=== PATIENT | female | born 1990 | race American Indian/Alaskan Native ===

== ENCOUNTER 2024-03-14 02:25 | Inpatient (IN) ==
[2024-03-14] MEDS ORDERED: OXYTOCIN 30 UNITS/NSS 30 UNITS/500 ML BAG IV PRN ×2 (02:51→12:51)
[2024-03-14] MEDS ORDERED: LIDOCAINE 1% LOCAL 20 ML VIAL INFIL PRN (02:51)
[2024-03-14] MEDS: LACTATED RINGER'S 1,000 ML IV PRN (02:57)
[2024-03-14] MEDS: PENICILLIN GK 6 MU in DEXTROSE 5% 250 ML IV STA (03:21)
[2024-03-14] MEDS ORDERED: ROPIVACAINE 0.5% PF 5 MG/ML 20 ML VIAL EPI PRN (03:43)
[2024-03-14] MEDS ORDERED: ePHEDrine sulfate 50 MG/ML AMP IV PRN (03:43)
[2024-03-14] MEDS ORDERED: NALOXONE HCL 1 MG in SODIUM CHLORIDE 0.9% 1,000 ML IV PRN (03:43)
[2024-03-14] MEDS ORDERED: NALBUPHINE HCL 5 MG in SYRINGE 0 ML IV PRN (03:43)
[2024-03-14] MEDS ORDERED: fentaNYL citrate PF 100 MCG/2 ML VIAL EPI PRN (03:43)
[2024-03-14] MEDS ORDERED: NALOXONE HCL 0.4 MG/1 ML VIAL/CARP IV PRN (03:43)
[2024-03-14] MEDS ORDERED: BUPIVACAINE 0.25% PF 30 ML VIAL EPI PRN (03:43)
[2024-03-14] MEDS ORDERED: SODIUM CHLORIDE 0.9% PF INJ 10 ML VIAL EPI PRN (03:43)
[2024-03-14] MEDS ORDERED: LIDOCAINE 2% MPF LOCAL 5 ML VIAL EPI PRN (03:43)
[2024-03-14] MEDS ORDERED: diphenhydrAMINE 50 MG/ML VIAL IV PRN (03:43)
--- NOTE | 2024-03-14 03:47 | Anesthesiology Consultation ---
Date of Service March 14, 2024 Assessment & Plan Chart Review Chart Review: Patient NOT seen in Pre Admission Testing and Acceptable Risk for Labor Epidural Consults Requested none ASA ASA2 Proposed Anesthesia Anesthesia Type: Labor Epidural Risk / Benefits Reviewed With: PT / POA / Parent / Guardian, Accepts Plan and Informed Consent Obtained History Height/Weight Height: 5 ft 6 in Weight: 95.254 kg Allergies Allergy/AdvReac Type Severity Reaction Status Date / Time No Known Allergies Allergy Unverified 03/14/24 02:47 Medications Home Medications Medication Instructions Recorded Confirmed Last Taken vits no.124-ferrous fum 1 tab PO DAILY 03/14/24 03/14/24 03/13/24 27 mg iron-folic acid 800 mcg tablet ( Vitamin) Active Medications Generic Name Dose Route Start Last Admin Trade Name Freq PRN Reason Stop Dose Admin Lactated Ringer's 1,000 mls @ 125 mls/hr 03/14/24 02:51 03/14/24 02:57 Lr IV 03/16/24 02:50 999 mls/hr .Q8H PRN Administration L&D Protocol Protocol NPO Date Last Intake of Fluids: 03/14/24 Time Last Intake of Fluids: 03:00 Date Last Intake of Solids: 03/13/24 Time Last Intake of Solids: 19:30 Past Medical History Medical History Rubella non-immune status, antepartum GBS (group B streptococcus) infection Rh negative status during Exercise / Class Metabolic Activity 1 > 8 Run/Swim/Ski/Tennis Past Family History Family History Grandmother (Maternal) Lymphoma Diabetes Hypertension Mother Hyperlipemia Past Surgical History Surgical History H/O wisdom tooth extraction S/P ACL repair Past Anesthesia History No Hx of Anesthesia Complications and No Family Hx of Anesthesia Complications History of PONV No Hx of PONV and No Hx of Motion Sickness Social History Smoking Status: Never smoker Hx Alcohol Use: No Hx Substance Use: No substance use type: does not use Review of Systems ROS Unobtainable: All systems reviewed & are unremarkable except as noted in HPI & below Physical Exam Vital Signs Last Vital Signs Temp 37.0 C 03/14/24 03:05 Pulse 82 03/14/24 03:38 Resp 18 03/14/24 03:05 BP 138/87 03/14/24 02:45 Pulse Ox 100 03/14/24 03:38 ENMT Mouth: no TMJ abnormality Thyromental Distance: > or= 3.5 Finger Breadths Mallampati Class: II Neck normal visual inspection and trachea midline; neck extension not limited Respiratory normal respiratory effort Auscultation: lungs clear to auscultation bilaterally Cardiovascular Rate/Rhythm: regular rate and regular rhythm Heart Sounds: no murmur Musculoskeletal Spine: normal cervical ROM Extremities: full ROM of extremities Neurologic moves all extremities Psychiatric Orientation: alert and oriented x 3 Testing Laboratory Results plt 143 per lab (results pending in computer)
[2024-03-14] MEDS: fentaNYL citrate PF 100 MCG/2 ML VIAL ONE (04:05)
[2024-03-14] MEDS: LIDOCAINE 2%/EPINEPHRINE 1:200,000 20 ML PF ONE (04:05)
[2024-03-14] MEDS: BUPIVACAINE 0.25% PF 30 ML VIAL ONE (04:07)
[2024-03-14 04:09] LABS: Hematocrit (blood only) 39.6 % (37.0-47.0); Hemoglobin 13.5 g/dl (12.0-16.0); Mean Corpuscular Hgb Conc 34.1 g/dL (32.0-36.0); Mean Platelet Volume 12.8 fL (9.4-12.4); Platelet Count 143 K/uL (130-400); RDW Coefficient of Variation 13.7 % (11.5-14.5); RDW Standard Deviation 44.1 fL (36.4-46.3); White Blood Count 14.99 K/ul (4.8-10.8)
[2024-03-14] MEDS: ePHEDrine sulfate 50 MG/ML AMP ONE (04:09)
[2024-03-14] MEDS: fentANYL 2 MCG/ML BUPIVacaine 0.125%-NSS 100ML BAG ONE (04:10)
[2024-03-14] MEDS: SODIUM CHLORIDE 0.9% PF INJ 10 ML VIAL ONE (04:13)
[2024-03-14] MEDS: BUPIVACAINE 0.25% PF 30 ML VIAL EPI STA (04:13)
[2024-03-14] MEDS: SODIUM CHLORIDE 0.9% PF INJ 10 ML VIAL EPI STA (04:14)
[2024-03-14] MEDS: fentaNYL citrate PF 100 MCG/2 ML VIAL EPI STA (04:14)
[2024-03-14] MEDS: LIDOCAINE 2%/EPINEPHRINE 1:200,000 20 ML PF EPI STA (04:14)
[2024-03-14] MEDS: PENICILLIN GK 3 MU in DEXTROSE 5% 100 ML IV PRN (07:35)
[2024-03-14] MEDS: OXYTOCIN 30 UNITS/NSS 30 UNITS/500 ML BAG IV PRN (07:36)
[2024-03-14] MEDS: fentANYL 2 MCG/ML BUPIVacaine 0.125%-NSS 100ML BAG EPI PRN (12:04)
--- NOTE | 2024-03-14 12:36 | Delivery Summary ---
Vaginal Delivery Summary Date of Service March 14, 2024 Vaginal Delivery Summary live male MICHAEL with nuchal cord x2 reduced at delivery of head with delayed cord clamping and Apgars 8/9 weight pending. Cord blood obtained followed by spontaneous delivery of intact placenta. Small 1st degree vaginal tear repaired with 3/0 Vicryl suture. QBL 216 ml. Final sponge, needle and instrument count are correct. Mom and baby stable.
[2024-03-14] MEDS ORDERED: BENZOCAINE 20% SPRY 85 APPLN/85 GM CAN EXT PRN (12:51)
[2024-03-14] MEDS ORDERED: ACETAMINOPHEN 325 MG TAB PO PRN (12:51)
[2024-03-14] MEDS ORDERED: bisacodyL 10 MG SUPP PR PRN (12:51)
[2024-03-14] MEDS ORDERED: IBUPROFEN 600 MG TAB PO PRN (12:51)
[2024-03-14] MEDS ORDERED: HYDROCORTISONE ACETATE 25 MG SUPP PR PRN (12:51)
--- NOTE | 2024-03-14 13:28 | Anesthesia Procedure Note ---
Date of Service March 14, 2024 Anesthesia Post Epidural Note Vital Signs Vital Signs: Temp Pulse Resp BP Pulse Ox 36.5 C 88 18 114/64 90 03/14/24 10:35 03/14/24 13:25 03/14/24 10:35 03/14/24 13:25 03/14/24 12:53 Pain Intensity Abdomen: Pain Intensity: 0 Notes Mental Status: alert / awake / arousable and participated in evaluation Nausea / Vomiting: adequately controlled Pain: adequately controlled Airway Patency, RR, SpO2: stable & adequate BP & HR: stable & adequate Hydration State: stable & adequate Neuraxial Anesthesia: was administered and sensory block is resolving Anesthetic Complications: no major complications apparent and Pt Satisfied with anesthetic care Epidural: Removed without complications and With tip intact
[2024-03-14] MEDS: DOCUSATE SODIUM 100 MG CAP PO SCH (20:48)
[2024-03-15 06:44] LABS: Hematocrit (blood only) 36.4 % (37.0-47.0); Mean Corpuscular Hemoglobin 29.9 pg (25.0-34.0); Mean Corpuscular Volume 90.5 fL (80.0-100.0); Mean Platelet Volume 12.5 fL (9.4-12.4); Platelet Count 111 K/uL (130-400); RDW Coefficient of Variation 14.1 % (11.5-14.5); RDW Standard Deviation 46.5 fL (36.4-46.3); Red Blood Count 4.02 M/uL (4.20-5.40)
[2024-03-15] MEDS: DIPHTHER/TETAN/PERTUS Vaccine (Tdap, Adol/Adult) 0.5mL IM ONE (07:14)
--- NOTE | 2024-03-15 08:02 | Obstetrical Progress Note ---
Date of Service March 15, 2024 Assessment & Plan Admission and Anticipated Discharge Date Admission Date: March 14, 2024 Subjective Patient is seen and examined. She feels well, no complaints. Ambulating without dizziness Voiding without difficulty Tolerating regular diet with out N&V Bleeding is minimal No fever/ chills/ CP/ SOB/ N&V/ Leg pain Breast feeding without problems Vital Signs Temp Pulse Pulse Resp BP BP Pulse Ox 03/15/24 03:35 36.8 C 84 18 132/82 97 03/14/24 23:45 36.7 C 81 18 139/84 97 O2 Del Method 03/15/24 03:35 Room Air 03/14/24 23:45 Room Air Lab Results 03/14/24 03/15/24 Range/Units 03:01 06:21 WBC 14.99 H 16.30 H (4.8-10.8) K/ul RBC 4.50 4.02 L (4.20-5.40) M/uL Hgb 13.5 12.0 (12.0-16.0) g/dl Hct 39.6 36.4 L (37.0-47.0) % MCV 88.0 90.5 (80.0-100.0) fL MCH 30.0 29.9 (25.0-34.0) pg MCHC 34.1 33.0 (32.0-36.0) g/dL RDW Std Deviation 44.1 46.5 H (36.4-46.3) fL RDW Coeff of Amilcar 13.7 14.1 (11.5-14.5) % Plt Count 143 111 L (130-400) K/uL MPV 12.8 H 12.5 H (9.4-12.4) fL Treponema pallidum Ab Negative (Negative) PE: General: Alert, orientedx3, NAD Abd: soft, NT, fundus firm, below Umbilicus Perineum intact, Lochia rubra minimal Ext; NT, no edema AP: 33 yo s/p , ppd#1 VSS Afebrile doing well Continue routine care All questions were answered D/C home tomorrow Results & Data Vital Signs (Past 12 Hours) Vital Signs Temp Pulse Pulse Resp BP BP Pulse Ox 03/15/24 03:35 36.8 C 84 18 132/82 97 03/14/24 23:45 36.7 C 81 18 139/84 97 O2 Del Method 03/15/24 03:35 Room Air 03/14/24 23:45 Room Air
[2024-03-15] MEDS: PRENATAL VITAMIN 1 TAB PO SCH (08:24)
[2024-03-15] MEDS: FERROUS SULFATE 325 MG TAB PO SCH (08:24)
[2024-03-15] MEDS ORDERED: PRENATAL VITAMIN 1 TAB PO SCH (09:00)
[2024-03-15] MEDS: bisacodyL 5 MG TABEC PO SCH (20:08)
[2024-03-16 06:50] LABS: Basophils # (auto) 0.06 K/uL (0.00-0.20); Basophils % (auto) 0.5 %; Eosinophils # (auto) 0.29 K/uL (0.00-0.50); Eosinophils % (auto) 2.2 %; Hematocrit (blood only) 36.3 % (37.0-47.0); Hemoglobin 12.2 g/dl (12.0-16.0); Immature Granulocytes # (auto) 0.08 K/uL (0.01-0.20); Immature Granulocytes % (auto) 0.6 %; Lymphocytes # (auto) 3.76 K/uL (1.20-3.40); Lymphocytes % (auto) 29.1 %; Mean Corpuscular Hemoglobin 30.2 pg (25.0-34.0); Mean Corpuscular Hgb Conc 33.6 g/dL (32.0-36.0); Mean Corpuscular Volume 89.9 fL (80.0-100.0); Monocytes # (auto) 0.95 K/uL (0.11-0.59); Monocytes % (auto) 7.4 %; Neutrophils # (auto) 7.77 K/uL (1.40-6.50); Neutrophils % (auto) 60.2 %; Platelet Count 120 K/uL (130-400); RDW Coefficient of Variation 14.3 % (11.5-14.5); RDW Standard Deviation 46.5 fL (36.4-46.3); Red Blood Count 4.04 M/uL (4.20-5.40); White Blood Count 12.91 K/ul (4.8-10.8)
[2024-03-16 08:21] VITALS: PULSE 67; RESP 16; TEMP 98.2; O2SAT 97
--- NOTE | 2024-03-16 09:22 | Obstetrical Progress Note ---
Date of Service March 16, 2024 Assessment & Plan Admission and Anticipated Discharge Date Admission Date: March 14, 2024 OB Progress Note abdomen soft and non tender no calf tenderness ambulating well vaginal bleeding scant hgb 12.2 Results & Data Vital Signs (Past 12 Hours) Vital Signs Temp Pulse Pulse Resp BP BP Pulse Ox 03/16/24 07:56 36.8 C 67 16 137/92 97 03/16/24 00:05 36.5 C 88 18 120/82 96 O2 Del Method 03/16/24 07:56 Room Air 03/16/24 00:05 Room Air
[2024-03-16] MEDS: MEASLES, MUMPS & RUBELLA VIRUS VACCINE (MMR) 0.5ML VIAL ONE (11:29)
[2024-03-16 11:57] VITALS: BP 120/82
--- NOTE | 2024-03-17 08:02 | Coding Query ---
CODING QUERY To promote full compliance with coding requirements relating to patient care, provider participation is requested in all cases of teacher of the emotionally disturbed uncertainty. Please assist us with the question(s) below: Coding Question(s): Please specify below, the number of weeks of gestation of on admission: ( ) Weeks of gestation of specified - Please specify the number of weeks of gestation 40 . ( ) Weeks of gestation of not known/unspecified Physician's Response(s): term Thank you Anne Patel Principal Diagnosis: "that condition established after study, to be chiefly responsible for occasioning the admission of the patient to the hospital for care." Co-Existing Principal Diagnosis: "when two or more diagnoses equally meet the criteria for principal diagnosis as determined by the circumstances of admission, diagnostic work up, and/or therapy provided, and the Alphabetic Index, Tabular List, or another coding guideline does not provide sequencing direction, any one of the diagnoses may be sequenced first." "When the physician has documented what appears to be a current diagnosis in the body of the record, but has not included the diagnosis in the final diagnostic statement, the physician should be asked whether the diagnosis should be added." (Source Coding [facility] 2 QTR90. p3-4) BRANDY
== END 2024-03-16 11:50 | disposition home or self-care (01) | DRG 807 ==
LOC: OPB 02:25 → 4S1 02:29 → 4E2 15:18